=== PATIENT | female | born 1930 ===

== ENCOUNTER 2018-12-15 12:32 | Emergency (ER) | payer OTHER ==
[~2018-12-15] VITALS: Ht 172.7 cm; Wt 74.8 kg
[2018-12-15] MEDS ORDERED: SYNTHROID175 MCG (12:45)
[2018-12-15] MEDS ORDERED: METOPROLOL SUCC25 MG (12:46)
[2018-12-15] MEDS ORDERED: ELIQUIS5 MG (12:46)
== END 2018-12-15 14:46 | disposition home or self-care (01) ==
LOC: ER 12:32
DX: M79.81 Nontraumatic hematoma of soft tissue (principal)